=== PATIENT | male | born 1980 | race Caucasian/White ===

== ENCOUNTER 2017-01-03 07:14 | Emergency (ER) | payer OTHER ==
[2017-01-03] MEDS ORDERED: BUPIVACAINE 0.25% PF 30 ML VIAL ONE (07:42)
--- NOTE | 2017-01-03 08:00 | ED Physician Documentation ---
History of Present Illness - Stated complaint Stated Complaint: L KNEE WOUND - Chief complaint Chief Complaint: General - History obtained from History obtained from: Patient, Family - Additonal information Additional information: Patient is a patient is a 36-year-old male who presents with a painful swelling on the left knee. It has been present since . He has been taking Bactrim since however the abscess is only increased in size. Pain is worse with movement and better with rest. He can range the left knee normally. He has a history of a previous infection of the left lower extremity similar to this 1 in the past. Is unsure whether he has staph infection previously. There is no systemic complaints such as fever or chills. Review of systems: For pertinent positive and negatives in the review of systems please see the history of present illness, otherwise all other systems have been reviewed and are negative. Dragon disclaimer: Parts of this medical record were created using voice recognition technology. Because of the inherent limitations of this system, occasional same sounding word substitutions do occur and persist despite proofreading. Please read the document for context. Review of Systems Constitutional: denies: Fever, Chills Musculoskeletal: reports: Extremity pain PD PAST MEDICAL HISTORY - Past Medical History Cardiovascular: None Endocrine/Autoimmune: None GI: GERD Derm: Other Other Past Medical History: Cellulitis - Past Surgical History Past Surgical History: Yes HEENT: Myringotomy (tubes) - Present Medications Home Medications: Ambulatory Orders Medication Instructions Recorded Confirmed Sulfamethoxazole/Trimethoprim 1 each PO BID #14 tablet 05/21/16 01/03/17 [Sulfamethoxazole-Tmp Ds Tablet] Cephalexin [Keflex] 500 mg PO QID #20 capsule 01/03/17 Tramadol HCl 50 mg PO Q8HR PRN #14 tablet 01/03/17 - Allergies Allergies/Adverse Reactions: Allergies Allergy/AdvReac Type Severity Reaction Status Date / Time No Known Drug Allergies Allergy Verified 01/03/17 07:31 - Social History Does the pt smoke?: No Smoking Status: Never smoker Does the pt drink ETOH?: Yes Does the pt have substance abuse?: Yes Substance Use and Type: Marijuana - Immunizations Immunizations are current?: Yes Immunizations: TDAP current <10years - POLST Patient has POLST: No PD ED PE NORMAL - Vitals Vital signs reviewed: Yes - General General: Alert and oriented X 3, No acute distress - Extremities Extremities: Other (On examination of the left knee there is a abscess over the patella. It does not look like septic bursitis. It appears to be involving the skin over the kneecap itself. Range of motion of the knee is normal without toxicity. This is a pointing abscess approximately 1 x 2 cm in size with surrounding erythema approximately 5 x 6 cm in size) Results - Vitals Vitals: Vital Signs - 24 hr 01/03/17 01/03/17 07:30 07:32 Temperature 36.8 C Heart Rate 88 Respiratory 14 92 H Rate Blood Pressure 146/89 H 135/93 H O2 Saturation 98 99 Oxygen O2 Source Room air PD MEDICAL DECISION MAKING - ED course ED course: This patient presents with an abscess of the left knee. There is no evidence of septic bursitis. There is no evidence of septic arthritis clinically. The abscess was anesthetized around its periphery and the abscess was unroofed, probed, deloculated, and drained. Culture was sent. Patient tolerated procedure well was packed with approximately 68 inches and 1/2 inch iodoform gauze. The patient tolerated procedure well. He is currently taking Bactrim which he will continue as well as additional antibiotic for synergy ,Keflex, a small amount of pain medication is been prescribed recommending repeat evaluation in couple to 3 days. He may need repacking as well. Disposition: To home Clinical impression: 1. Abscess left knee overlying patella no evidence of septic bursitis status post incision and drainage Departure - Departure Disposition: 01 Home, Self Care Clinical Impression: Abscess Condition: Good Instructions: ED Abscess IandD Follow-Up: your,physician [Other] Prescriptions: Tramadol HCl 50 mg PO Q8HR PRN #14 tablet PRN Reason: Pain Cephalexin [Keflex] 500 mg PO QID #20 capsule
[2017-01-03 08:32] VITALS: BP 129/76
== END 2017-01-03 08:41 | disposition home or self-care (01) ==
LOC: ED 07:14
DX: L02.416 Cutaneous abscess of left lower limb (principal)
CPT/HCPCS: 10060; 99283

== ENCOUNTER 2017-01-09 10:14 | Emergency (ER) | payer OTHER ==
--- NOTE | 2017-01-09 11:15 | ED Physician Documentation ---
PD HPI WOUND RECHECK - Stated complaint Stated Complaint: WOUND CHECK - Chief complaint Chief Complaint: Wound - Histroy obtained from History obtained from: Patient - History of Present Illness Location: Left Lower Extremity (infrapatellar bursal area) Timing - onset: How many days ago (3) Associated symptoms: Redness (had been red and swollen, which has gone down considerably since I&D and also on Keflex.), Swelling. No: Fever Recently seen: Emergency Dept (had prepatellar redness and swelling and was placed on Bactrim, without improvement. It got more red and swollen and was seen in [place] with I&D of the site, drained and had Keflex added. Was told to follow up for packing removal and recheck in 2-3 days.) Review of Systems Constitutional: denies: Fever, Chills Cardiac: denies: Chest pain / pressure Respiratory: denies: Dyspnea GI: denies: Abdominal Pain, Nausea, Vomiting, Diarrhea Neurologic: denies: Generalized weakness, Numbness, Near syncope Immunocompromised: denies: Immunocompromised PD PAST MEDICAL HISTORY - Past Medical History Cardiovascular: None Endocrine/Autoimmune: None GI: GERD Derm: Other - Past Surgical History Past Surgical History: Yes HEENT: Myringotomy (tubes) - Present Medications Home Medications: Ambulatory Orders Medication Instructions Recorded Confirmed Sulfamethoxazole/Trimethoprim 1 each PO BID #14 tablet 05/21/16 01/03/17 [Sulfamethoxazole-Tmp Ds Tablet] Cephalexin [Keflex] 500 mg PO QID #20 capsule 01/03/17 Ibuprofen [Advil] 400 mg PO PRN PRN 01/09/17 01/09/17 Sulfamethox/Trimeth 800/160 1 each PO BID #10 tablet 01/09/17 [Bactrim Ds 800/160] - Allergies Allergies/Adverse Reactions: Allergies Allergy/AdvReac Type Severity Reaction Status Date / Time No Known Drug Allergies Allergy Verified 01/09/17 10:23 - Social History Does the pt smoke?: No Smoking Status: Never smoker Does the pt drink ETOH?: Yes Does the pt have substance abuse?: Yes - Immunizations Immunizations are current?: Yes Immunizations: TDAP current <10years - POLST Patient has POLST: No PD ED PE NORMAL - Vitals Vital signs reviewed: Yes - General General: Alert and oriented X 3, No acute distress, Well developed/nourished - Derm Derm: Normal color, Warm and dry, Other - Extremities Extremities: No deformity, No tenderness to palpate, Other (left prepatellar redness and local swelling, mild packing removed with local. ) Results - Vitals Vitals: Vital Signs - 24 hr 01/09/17 01/09/17 10:21 12:07 Temperature 36.4 C L 36.3 C L Heart Rate 75 75 Respiratory 14 18 Rate Blood Pressure 140/85 H 126/87 H O2 Saturation 100 100 Oxygen O2 Source Room air PD MEDICAL DECISION MAKING - ED course Complexity details: reviewed results (culture from prior visit 01/03 showing Staph growth susceptible to Bactrim. The worsening of the knee on the Bactrim likely relates to developing abscess and improvement due to I&D though consider some effect of adding the Keflex. Have him finish out a week on the Keflex, but give Rx for Bactrim as today was last day of prior Rx he has. ), considered differential (there is red/pink base of the abscess hole, without drainage onto the bandage that has been there for 3 days, Removed packing and does not need more. ) Departure - Departure Disposition: 01 Home, Self Care Clinical Impression: Encounter for recheck of abscess following incision and drainage Condition: Stable Record reviewed to determine appropriate education?: Yes Prescriptions: Sulfamethox/Trimeth 800/160 [Bactrim Ds 800/160] 1 each PO BID #10 tablet Comments: Since it is doing better and corresponded to both the drainage and also the Cephalexin, then I would continue the cephalexin as directed. However the initial culture with the drainage shows Staph germs, which are best responsive to the Sulfa, so I would continue the Sulfa antibiotic another 5 days or so. Tylenol or Ibuprofen for pains. At this time, it does not need repacking. Cleanse the wound with soap and water, or warm soaks, and change dressing daily. Recheck if not healed in well over the next 7-10 days, sooner if draining more or red again. Discharge Date/Time: 01/09/17 12:07
[2017-01-09 12:08] VITALS: BP 126/87
== END 2017-01-09 12:07 | disposition home or self-care (01) ==
LOC: ED 10:14
DX: L02.416 Cutaneous abscess of left lower limb (principal)
CPT/HCPCS: 99283

== ENCOUNTER 2018-03-29 05:33 | Emergency (ER) | payer OTHER ==
--- NOTE | 2018-03-29 05:55 | ED Physician Documentation ---
PD HPI SKIN - Stated complaint Stated Complaint: SWOLLEN UPPER LIP - Chief complaint Chief Complaint: Wound - History obtained from History obtained from: Patient - History of Present Illness Timing - onset: How many days ago (2) Timing - duration: Days (2) Timing - details: Gradual onset Pain level now: 0 Location: Face (upper lip) Quality / character: Discolored, Raised, Swelling, Draining Associated symptoms: Facial swelling (upper lip). No: Fever Similar symptoms before: Has not had sx before - Additional information Additional information: noticed "pimple" (per patient) on upper lip 2 days ago which he applied pressure to and this resulted in pus being expressed. the area gradually increased in redness and swelling. yesterday he again applied pressure to the lesion and was able to express more pus, presents at this time due to further swelling that now involves entire upper lip. he says there is no significant pain associated with the lesion Review of Systems Constitutional: denies: Fever, Chills, Sweats Skin: reports: Lesions (swelling, erythema of upper lip) PD PAST MEDICAL HISTORY - Past Medical History Cardiovascular: None Endocrine/Autoimmune: None GI: GERD Derm: Other - Past Surgical History Past Surgical History: Yes HEENT: Myringotomy (tubes) - Present Medications Home Medications: Ambulatory Orders Medication Instructions Recorded Confirmed Cephalexin [Keflex] 500 mg PO QID #28 capsule 03/29/18 Sulfamethox/Trimeth 800/160 1 each PO BID #14 tablet 03/29/18 [Bactrim Ds 800/160] Terbinafine HCl 1 tab PO DAILY 03/29/18 03/29/18 predniSONE [Prednisone] 10 mg PO DAILY 03/29/18 03/29/18 - Allergies Allergies/Adverse Reactions: Allergies Allergy/AdvReac Type Severity Reaction Status Date / Time No Known Drug Allergies Allergy Verified 03/29/18 05:39 - Social History Does the pt smoke?: No Smoking Status: Never smoker Does the pt drink ETOH?: Yes Does the pt have substance abuse?: Yes - Immunizations Immunizations are current?: Yes Immunizations: TDAP current <10years - POLST Patient has POLST: No PD ED PE NORMAL - Vitals Vital signs reviewed: Yes - General General: Alert and oriented X 3, No acute distress, Well developed/nourished PD ED PE EXPANDED - HEENT HEENT Visual: 1 - rash (erythema with sharp margins), swelling, tenderness (mild TTP) 2 - swelling Results - Vitals Vitals: Oxygen O2 Source Room air PD MEDICAL DECISION MAKING - ED course Complexity details: considered differential, d/w patient ED course: there is significant swelling of entire upper lip but erythema and induration is limited to 1cm diameter area midline. there is a small central opening, 2mm diameter, but no discharge; he was able to tolerate pressure to the area, but this also did not result in expression of pus. I discussed option of I+D vs. abx only; my recommendation was antibiotics only at this time due to small size of the infection, and patient is comfortable with this plan. I instructed him to return if worse or if he develops fever Departure - Departure Disposition: 01 Home, Self Care Clinical Impression: Facial cellulitis Condition: Good Instructions: ED Cellulitis Facial Prescriptions: Cephalexin [Keflex] 500 mg PO QID #28 capsule Sulfamethox/Trimeth 800/160 [Bactrim Ds 800/160] 1 each PO BID #14 tablet Discharge Date/Time: 03/29/18 06:35
[2018-03-29] MEDS ORDERED: cephALEXin 250 MG CAPSULE PO STA (06:16)
[2018-03-29] MEDS ORDERED: SULFAMETH/TRIMETH DS 800/160 MG TABLET PO STA (06:16)
[2018-03-29 06:32] VITALS: BP 154/103
== END 2018-03-29 06:35 | disposition home or self-care (01) ==
LOC: ED 05:33
DX: L03.211 Cellulitis of face (principal)
CPT/HCPCS: 99283; A9270

== ENCOUNTER 2022-11-02 18:10 | Emergency (ER) | payer BC, OTHER ==
[2022-11-02 18:41] LABS: BILIRUBIN,URINE NEGATIVE (NEGATIVE); GLUCOSE, URINE (UA) NEGATIVE (NEGATIVE); KETONES,URINE (UA) 15 mg/dL (NEGATIVE); LEUKOCYTE ESTERASE, URINE NEGATIVE (NEGATIVE); NITRITE,URINE NEGATIVE (NEGATIVE); OCCULT BLOOD,URINE LARGE (NEGATIVE); PROTEIN,URINE TRACE mg/dL (NEGATIVE); UROBILINOGEN,URINE 0.2 (NORMAL) E.U./dL (NORMAL)
[2022-11-02 18:46] LABS: CLARITY,URINE CLEAR (CLEAR)
[2022-11-02 18:52] LABS: BACTERIA,URINE Rare /HPF (None Seen); MUCUS,URINE Few Strands; SQUAMOUS EPITHELIAL CELL,UR RARE Squamous (<= Few); WBC,URINE 0-3 /HPF (0-3)
[2022-11-02 19:10] LABS: BASOPHILS # (AUTO) 0.1 10^3/uL (0.0-0.1); BASOPHILS % (AUTO) 0.7 %; EOSINOPHILS # (AUTO) 0.2 10^3/uL (0.0-0.7); EOSINOPHILS % (AUTO) 2.3 %; HCT - HEMATOCRIT 47.5 % (42.0-52.0); HGB - HEMOGLOBIN 16.3 g/dL (14.0-18.0); LYMPHOCYTES # (AUTO) 1.4 10^3/uL (1.5-3.5); LYMPHOCYTES % (AUTO) 13.7 %; MEAN CORPUSCULAR HEMOGLOBIN 29.5 pg (27.0-31.0); MEAN CORPUSCULAR HGB CONC 34.3 g/dL (32.0-36.0); MEAN CORPUSCULAR VOLUME 85.9 fL (80.0-94.0); MEAN PLATELET VOLUME 9.4 fL (7.4-11.4); MONOCYTES # (AUTO) 0.6 10^3/uL (0.0-1.0); MONOCYTES % (AUTO) 5.8 %; NEUTROPHILS # (AUTO) 7.7 10^3/uL (1.5-6.6); NEUTROPHILS % (AUTO) 77.3 %; PLT - PLATELET COUNT 186 10^3/uL (130-450); RED BLOOD COUNT 5.53 10^6/uL (4.70-6.10); RED CELL DISTRIBUTION WIDTH 12.7 % (12.0-15.0)
[2022-11-02 19:24] LABS: ALBUMIN 4.5 g/dL (3.2-5.5); ALBUMIN/GLOBULIN RATIO 1.3 (1.0-2.2); CALCIUM 9.1 mg/dL (8.5-10.3); CREATININE 1.3 mg/dL (0.6-1.2)
--- NOTE | 2022-11-02 20:00 | ED Physician Documentation ---
History of Present Illness - Stated complaint Stated Complaint: ABD PX - Chief complaint Chief Complaint: Abd Pain - History obtained from History obtained from: Patient - History of Present Illness Timing: Today Pain level max: 8 Pain level now: 5 - Additonal information Additional information: 42-year-old male presents the emergency department complaining of left flank and left lower quadrant abdominal pain. Started today. Nothing makes it better or worse. He states he was having difficulty urinating as well. No burning. No gross hematuria. No fevers. No chills. No diarrhea. No constipation. No recent travel. Has never had kidney stones before. Review of Systems Constitutional: denies: Fever, Chills Cardiac: denies: Chest pain / pressure, Palpitations Respiratory: denies: Cough GI: reports: Nausea. denies: Vomiting, Diarrhea : reports: Dysuria, Frequency, Hesitancy Skin: denies: Rash Musculoskeletal: denies: Neck pain Neurologic: denies: Focal weakness, Numbness, Headache PD PAST MEDICAL HISTORY - Past Medical History Cardiovascular: None Endocrine/Autoimmune: None GI: GERD Derm: Other - Past Surgical History Past Surgical History: Yes HEENT: Myringotomy (tubes) - Present Medications Home Medications: Ambulatory Orders Medication Instructions Recorded Confirmed Sulfamethox/Trimeth 800/160 1 each PO BID #14 tablet 03/29/18 [Bactrim Ds 800/160] cephALEXin [Keflex] 500 mg PO QID #28 capsule 03/29/18 predniSONE [Prednisone] 10 mg PO DAILY 03/29/18 03/29/18 terbinafine HCL [Terbinafine HCl] 1 tab PO DAILY 03/29/18 03/29/18 - Allergies Allergies/Adverse Reactions: Allergies Allergy/AdvReac Type Severity Reaction Status Date / Time No Known Drug Allergies Allergy Verified 03/29/18 05:39 - Social History Does the pt smoke?: No Smoking Status: Never smoker Does the pt drink ETOH?: Yes Does the pt have substance abuse?: Yes - Immunizations Immunizations are current?: Yes Immunizations: TDAP current <10years - POLST Patient has POLST: No PD ED PE NORMAL - Vitals Vital signs reviewed: Yes - General General: Alert and oriented X 3, No acute distress - HEENT HEENT: PERRL, Moist mucous membranes - Neck Neck: Supple, no meningeal sign - Cardiac Cardiac: RRR, No murmur - Respiratory Respiratory: No respiratory distress, Clear bilaterally - Abdomen Abdomen: Soft, Non tender, Non distended - Back Back: No CVA TTP, No spinal TTP - Derm Derm: Warm and dry - Extremities Extremities: No edema, No calf tenderness / cord - Neuro Neuro: Alert and oriented X 3 - Psych Psych: Normal mood, Normal affect Results - Vitals Vitals: Vital Signs - 24 hr 11/02/22 11/02/22 11/02/22 18:13 18:25 20:20 Temperature 36.5 C Heart Rate 62 65 67 Respiratory 18 16 18 Rate Blood Pressure 171/115 H 171/115 H 165/108 H O2 Saturation 100 98 98 Oxygen O2 Source Room air - Labs Labs: Laboratory Tests 11/02/22 11/02/22 11/02/22 18:35 19:07 19:07 WBC 10.0 RBC 5.53 Hgb 16.3 Hct 47.5 MCV 85.9 MCH 29.5 MCHC 34.3 RDW 12.7 Plt Count 186 MPV 9.4 Neut # (Auto) 7.7 H Lymph # (Auto) 1.4 L [place] # (Auto) 0.6 Eos # (Auto) 0.2 Baso # (Auto) 0.1 Absolute Nucleated RBC 0.00 Nucleated RBC % 0.0 Sodium 137 Potassium 4.0 Chloride 103 Carbon Dioxide 23 Anion Gap 11.0 BUN 15 Creatinine 1.3 H Estimated GFR (MDRD) 60 L Glucose 110 H Calcium 9.1 Total Bilirubin 1.0 AST 26 ALT 30 Alkaline Phosphatase 23 L Total Protein 8.0 Albumin 4.5 Globulin 3.5 Albumin/Globulin Ratio 1.3 Lipase 32 Urine Color YELLOW Urine Clarity CLEAR Urine pH 6.0 Ur Specific [place] 1.025 Urine Protein TRACE Urine Glucose (UA) NEGATIVE Urine Ketones 15 H Urine Occult Blood LARGE H Urine Nitrite NEGATIVE Urine Bilirubin NEGATIVE Urine Urobilinogen 0.2 (NORMAL) Ur Leukocyte Esterase NEGATIVE Urine RBC 11-25 H Urine WBC 0-3 Ur Squamous Epith Cells RARE Squamous Urine Bacteria Rare Urine Mucus Few Strands Ur Microscopic Review INDICATED Urine Culture Comments NOT INDICATED - Rads (name of study) CT abdomen pelvis Relevant Findings:: Final report received, See rad report PD Medical Decision Making - ED course Complexity details: reviewed results, re-evaluated patient, considered differential, d/w patient ED course: 42-year-old male with a left-sided ureteral stone. He states that he was able to urinate freely after the CT scan and his pain has fully resolved. Likely that he passed the stone during that event. No fevers. No chills. No evidence of infection. No evidence of sepsis. Recommend that he drink plenty of fluids and follow-up as an outpatient with his doctor. No significant lab abnormalities. No evidence of UTI. Patient counseled regarding signs and symptoms for which I believe and urgent re-evaluation would be necessary. Patient with good understanding of and agreement to plan and is comfortable going home at this time This document was made in part using voice recognition software. While efforts are made to proofread this document, sound alike and grammatical errors may occur. Small obstructing urinary stone at the left UVJ with minimal left hydroureteronephrosis. Departure - Departure Disposition: 01 Home, Self Care Clinical Impression: Ureteral calculus, left Condition: Good Instructions: ED Stone Renal Passed Follow-Up: Your,doctor as needed [Other] Comments: You have a left-sided ureteral stone, this appears to have passed into the bladder. Please follow-up with your doctor as needed for further care. Make sure you are drinking plenty of water. Please return if you worsen. It appears to be 2-3mm in size Discharge Date/Time: 11/02/22 20:30
[2022-11-02 20:22] VITALS: BP 165/108
--- NOTE | 2022-11-02 20:56 | CT Report ---
PROCEDURE: ABDOMEN/PELVIS W INDICATIONS: LLQ pain CONTRAST: 100mL Omni 350 TECHNIQUE: After the administration of intravenous contrast, 5 mm thick sections acquired from the diaphragms to the symphysis. 5 mm thick coronal and sagittal reformats were acquired. For radiation dose reducti on, the following was used: automated exposure control, adjustment of mA and/or kV according to luz ent size. COMPARISON: None. FINDINGS: Image quality: Excellent. Lung bases: Unremarkable. Heart: Heart is normal in size. ABDOMEN: Liver:There is hypoattenuation of the liver consistent with fatty infiltration. Gallbladder: Within normal limits without calcified gallstones. Biliary ducts: No biliary ductal dilatation. Pancreas: Unremarkable. Spleen: Normal in size. Adrenal Glands: No adrenal nodules. Kidneys and Ureters:There is a small 0.3 cm urinary stone in the left uterovesical junction with ass ociated minimal left hydroureteronephrosis. No right hydronephrosis. Stomach and Bowel: Stomach, small bowel loops, and colon are normal in caliber and wall thickness. T he appendix is normal. There is colonic diverticulosis without acute diverticulitis. Peritoneum: No abnormal intraperitoneal fluid. No free air. Ventral Wall: No hernia. Abdominal Nodes: No retroperitoneal or mesenteric adenopathy by size criteria. Vessels: Aorta and inferior vena cava are normal in size. PELVIS: Pelvic Organs: Unremarkable. Bladder: Unremarkable. Pelvic Nodes: No enlarged lymph nodes. Miscellaneous: No inguinal hernias. Bones: Visualized osseous structures demonstrate no suspicious lesions. IMPRESSION: 1. Small obstructing urinary stone at the left UVJ with minimal left hydroureteronephrosis. Reviewed by: Christian Timmons MD on 11/02/2022 8:55 PM PDT Approved by: Christian Timmons MD on 11/02/2022 8:55 PM PDT Station ID: [id number]
== END 2022-11-02 20:30 | disposition home or self-care (01) ==
LOC: ED 18:10
DX: N20.1 Calculus of ureter (principal)
CPT/HCPCS: 36415; 74177; 80053; 81001; 83690; 85025; 99283; 99284; Q9967; 81003; 87086

== ENCOUNTER 2023-08-26 13:00 | Outpatient (CLI) | payer BC ==
[2023-08-26 16:14] LABS: BASOPHILS # (AUTO) 0.1 10^3/uL (0.0-0.1); BASOPHILS % (AUTO) 0.9 %; EOSINOPHILS # (AUTO) 0.4 10^3/uL (0.0-0.7); EOSINOPHILS % (AUTO) 4.9 %; HGB - HEMOGLOBIN 16.8 g/dL (14.0-18.0); LYMPHOCYTES # (AUTO) 1.8 10^3/uL (1.5-3.5); LYMPHOCYTES % (AUTO) 22.3 %; MEAN CORPUSCULAR HEMOGLOBIN 29.7 pg (27.0-31.0); MEAN CORPUSCULAR HGB CONC 34.3 g/dL (32.0-36.0); MEAN CORPUSCULAR VOLUME 86.7 fL (80.0-94.0); MEAN PLATELET VOLUME 9.7 fL (7.4-11.4); MONOCYTES # (AUTO) 0.5 10^3/uL (0.0-1.0); MONOCYTES % (AUTO) 6.4 %; NEUTROPHILS # (AUTO) 5.4 10^3/uL (1.5-6.6); NEUTROPHILS % (AUTO) 65.3 %; PLT - PLATELET COUNT 184 10^3/uL (130-450); RED BLOOD COUNT 5.65 10^6/uL (4.70-6.10); RED CELL DISTRIBUTION WIDTH 12.8 % (12.0-15.0); WHITE BLOOD COUNT 8.2 x10^3/uL (4.8-10.8)
[2023-08-26 16:58] LABS: ALBUMIN 4.7 g/dL (3.2-5.5); ALBUMIN/GLOBULIN RATIO 1.7 (1.0-2.2); BILIRUBIN,TOTAL 0.8 mg/dL (0.2-1.0); CALCIUM 9.8 mg/dL (8.5-10.3); POTASSIUM 3.9 mmol/L (3.5-4.5); TOTAL PROTEIN 7.4 g/dL (6.4-8.9)
== END 2023-08-26 13:01 | disposition home or self-care (01) ==
LOC: LAB.S 13:00
PROVIDERS: ATTEND Emergency Medicine
DX: R10.32 Left lower quadrant pain (principal)
CPT/HCPCS: 36415; 80053; 85025

== ENCOUNTER 2023-08-29 14:04 | Outpatient (CLI) | payer BC ==
[2023-08-29] MEDS ORDERED: iohexoL-300 100 ML VIAL ONE (15:21)
[2023-08-29] MEDS ORDERED: DIATRIZOATE MEGLU/DIATRIZO SOD 30 ML BOTTLE PO ONE (15:22)
[2023-08-29] MEDS: iohexoL-300 100 ML VIAL IVP ONE (16:13)
[2023-08-29] MEDS: DIATRIZOATE MEGLU/DIATRIZO SOD 30 ML BOTTLE PO ONE (16:14)
--- NOTE | 2023-08-29 16:43 | CT Report ---
PROCEDURE: Abdomen/Pelvis W INDICATIONS: ABD PAIN CONTRAST: Omni 300 100ml TECHNIQUE: After the administration of intravenous contrast, a CT scan of the abdomen and pelvis was performed. Images were recorded and evaluated at appropriate window settings. Reformats: coronal and sagittal. F or radiation dose reduction, the following was used: automated exposure control, adjustment of mA and /or kV according to patient size. COMPARISON: 11/02/2022. FINDINGS: Image quality: Diagnostic. Lower chest: Unremarkable. Liver: No solid mass. Mild to moderate hepatic steatosis is seen. Gallbladder and biliary tree: There is no gallstone. No gallbladder wall thickening or pericholecysti c fluid. No sonographic Amaya's sign. Spleen: No splenomegaly. Pancreas: No pancreatic ductal dilation. Adrenals: No adrenal nodule. Kidneys and ureters: No hydronephrosis. No renal cystic lesion which requires follow up. No solid mas s. Stomach, bowel and peritoneum: There is no bowel obstruction. No gastric or small bowel wall thickeni ng or mesenteric fat stranding. Appendix is visualized in right lower quadrant abdomen and is within normal limits. Descending and sigmoid colon diverticulosis is seen. There is suggestion of colonic wa ll thickening involving proximal sigmoid colon in left lower quadrant abdomen with narrowing of the l umen and mild adjacent pericolonic fat stranding series 2 image 113. No abscess collection. No free f luid of free air. Lymph nodes: No central or retroperitoneal adenopathy. Vessels: No infrarenal aortic aneurysm. PELVIS Reproductive organs: Unremarkable. Bladder: No abnormal wall thickening, accounting for underdistention. Pelvic lymph nodes: No pelvic adenopathy by size criteria. Bones: No aggressive osseous abnormality. Other: No significant ventral or inguinal hernia. IMPRESSION: 1. Finding is concerning for early acute diverticulitis involving proximal sigmoid colon in left lowe r quadrant with colonic wall thickening. Underlying neoplastic process such as colonic wall mass sami ot be entirely excluded. Clinical and possible endoscopic correlation is recommended. No other area o f abnormal bowel wall thickening. Normal appendix. No free fluid of free air. 2. Mild to moderate hepatic steatosis, no discrete hepatic lesion. 3. No renal stones or hydronephrosis is seen on the current study. Reviewed by: Jr Brown MD on 08/29/2023 4:42 PM PDT Approved by: Jr Brown MD on 08/29/2023 4:42 PM PDT Station ID: [id number]
== END 2023-08-29 14:05 | disposition home or self-care (01) ==
LOC: DI 14:04
PROVIDERS: ATTEND Emergency Medicine
DX: K57.30 Diverticulosis of large intestine without perforation or abscess without bleeding (principal); K76.0 Fatty (change of) liver, not elsewhere classified; R10.32 Left lower quadrant pain
CPT/HCPCS: 74177; Q9963; Q9967